=== PATIENT | male | born 1975 | race Caucasian/White ===

== ENCOUNTER 2018-04-16 09:31 | Emergency (ER) | payer MEDICAID, OTHER ==
[~2018-04-16] VITALS: Ht 193 cm; Wt 111.1 kg
[2018-04-16 09:56] VITALS: BP 122/75
[2018-04-16] MEDS ORDERED: KETOROLAC TROMETH 60MG/2ML VIAL IM ONE (10:30)
[2018-04-16] MEDS ORDERED: METHOCARBAMOL 500 MG TAB PO ONE (10:30)
== END 2018-04-16 11:24 | disposition home or self-care (01) ==
LOC: ER 09:31
DX: S39.012A Strain of muscle, fascia and tendon of lower back, initial encounter (principal); X50.1XXA Overexertion from prolonged static or awkward postures, initial encounter; Y93.89 Activity, other specified; Y92.89 Other specified places as the place of occurrence of the external cause; Y99.8 Other external cause status
CPT/HCPCS: 96372; 99283; J1885